=== PATIENT | female | born 1965 | race Caucasian/White ===

== ENCOUNTER 2018-03-21 15:45 | Emergency (ER) | payer OTHER ==
[~2018-03-21] VITALS: Ht 157.5 cm; Wt 127.3 kg
[2018-03-21] MEDS ORDERED: HYDR-305 PO (15:49)
[2018-03-21] MEDS ORDERED: TRAZ-219 PO (15:49)
[2018-03-21] MEDS ORDERED: FLUO-191 PO (15:49)
[2018-03-21] MEDS ORDERED: RA MED (15:50)
[2018-03-21] MEDS ORDERED: LIDOCAINE HCL/PF 1% 5 ML VIAL INJ ONE (16:45)
[2018-03-21] MEDS ORDERED: PERTUSS(ACELL),DIPH,TET VAC/PF 0.5 ML VIAL IM ONE (17:15)
[2018-03-21 17:17] VITALS: BP 136/94
== END 2018-03-21 18:28 | disposition home or self-care (01) ==
LOC: EMS 15:46
DX: S90.851A Superficial foreign body, right foot, initial encounter (principal); W45.8XXA Other foreign body or object entering through skin, initial encounter; Y93.89 Activity, other specified; Y92.89 Other specified places as the place of occurrence of the external cause; Y99.8 Other external cause status
CPT/HCPCS: 73630; 90471; 90715; 99284; J3490